=== PATIENT | male | born 1940 | race Caucasian/White ===

== ENCOUNTER 2023-09-29 12:43 | Observation (INO) | payer MEDICARE, SELFPAY ==
[2023-09-29] VITALS (24 sets, daily range): BP systolic 139–167; BP diastolic 62–109; PULSE 57–68; RESP 13–21; TEMP 36.7–37.2; O2SAT 82–100; BMI 18.8
--- NOTE | ~2023-09-29 | XR_ITS ---
EXAMINATION: XR chest 1V DATE: 09/29/2023 14:01 INDICATION: Cerebral vascular accident. TECHNIQUE: A single frontal view of the chest was obtained. COMPARISON: None. FINDINGS: There are lucencies and interstitial opacities in the lungs, consistent with emphysema. The re is mild atelectasis versus scarring in the lower lung zones. There is mild scarring in the upper l obes. No pleural effusion or pneumothorax. The heart size is normal. 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 IMPRESSION: 1. Emphysema. 2. Mild atelectasis versus scarring in the lower lung zones. Mild scarring at the lung apices. Reviewed, dictated and finalized at location E. IMPRESSION: 1. Emphysema. 2. Mild atelectasis versus scarring in the lower lung zones. Mild scarring at t he lung apices.
--- NOTE | ~2023-09-29 | MR_ITS ---
EXAMINATION: MR brain/brain stem wo con DATE: 09/30/2023 14:41 INDICATION: Cerebrovascular accident. TECHNIQUE: Magnetic resonance imaging (MRI) of the brain and brainstem was performed without intraven ous contrast. COMPARISON: Head CT 09/29/2023 FINDINGS: There are patchy acute infarcts involving the right temporal lobe, posterior right frontal lobe, right parietal lobe, and right parietal occipital region in the expected distribution of right middle cerebral artery. There is no intracranial hemorrhage or abnormal mass lesion. There are scatte red areas of nonspecific increased T2-weighted signal intensity in the cerebral white matter. The julia tricles are normal in size. There is mucosal thickening in the paranasal sinuses. There are likely ch anges of ocular lens replacement surgeries. The mastoid air cells are normal. IMPRESSION: 1. Acute infarcts in the expected distribution of right middle cerebral artery. 2. Moderate nonspecific cerebral white matter disease, which likely represents chronic small vessel i schemic disease. Reviewed, dictated and finalized at location E. IMPRESSION: 1. Acute infarcts in the expected distribution of right middle cerebral artery. 2. Moderate nonspecific cerebral white matter disease, which likely represents chronic small vessel ischemic disease.
--- NOTE | ~2023-09-29 | CT_ITS ---
EXAMINATION: CTA brain carotid DATE: 09/29/2023 13:59 INDICATION: Cerebral vascular accident. TECHNIQUE: Computed tomographic angiography (CTA) of the head was performed without and with 100 mL O mnipaque-350 intravenous contrast. CTA of the neck was performed with intravenous contrast. Automated exposure control and iterative reconstruction technique were employed. The dose-length product was 1 505.80 mGy-cm. Maximum intensity projection and volume rendered 3D-reconstructions were created by renetta hernandez technologist on a separate workstation. COMPARISON: None. FINDINGS: HEAD CTA: There are scattered areas of low attenuation in the cerebral white matter. There is an infa rct in right temporal lobe. There is an infarct in right parietal lobe. There is no intracranial hemo rrhage or abnormal mass lesion. The ventricles are normal in size. There is mucosal thickening in the paranasal sinuses. There are likely changes of ocular lens replacement surgeries. The mastoid air ce lls are normal. The vertebral arteries are codominant. There is no significant stenosis of basilar ar trey or the posterior cerebral arteries. The posterior communicating arteries are normal. There is no significant stenosis of the intracranial internal carotid arteries or anterior or middle cerebral ar teries. 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 NECK CTA: There is moderate emphysema. There is mild scarring in the upper lobes. There are no pathol ogically enlarged lymph nodes. There is no significant stenosis of the vertebral arteries. There is p laque in the proximal internal carotid arteries. There is 29% stenosis of the proximal right internal carotid artery relative to normal distal artery lumen diameter (NASCET criteria). There is 0% stenos is of the proximal left internal carotid artery relative to normal distal artery lumen diameter. Ther e is severe cervical spondylosis. There is mild chronic anterior wedging of C5 vertebral body. IMPRESSION: 1. Age-indeterminate infarcts in the right temporal lobe and right parietal lobe. 2. Moderate nonspecific cerebral white matter disease, which likely represents chronic small vessel i schemic disease. 3. 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 4. 29% stenosis of the proximal right internal carotid artery relative to normal distal artery lumen diameter (NASCET criteria). 5. 0% stenosis of the proximal left internal carotid artery relative to normal distal artery lumen di ameter. 6. Moderate emphysema. Reviewed, dictated and finalized at location E. IMPRESSION: 1. Age-indeterminate infarcts in the right temporal lobe and right parietal lob e. 2. Moderate nonspecific cerebral white matter disease, which likely represents chronic small vessel ischemic disease. 3. 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 4. 29% stenosis of the proximal right internal carotid artery relative to juanjo l distal artery lumen diameter (NASCET criteria). 5. 0% stenosis of the proximal left internal carotid artery relative to normal distal artery lumen diameter. 6. Moderate emphysema.
[2023-09-29 13:00] LABS: Glucose Point of Care 93 mg/dl (65-105)
[2023-09-29 13:27] LABS: Basophils Percent Auto 0.2 % (0.2-1.2); Eosinophils Absolute Auto 0.1 K/mm3 (0-0.3); Eosinophils Percent Auto 0.8 % (0-4.4); Hematocrit 42.1 % (42.0-52.0); Hemoglobin 13.6 g/dL (14.0-18.0); Immature Granulocyte Absolute 0.03 K/mm3 (0.00-0.031); Immature Granulocyte Percent A 0.3 % (0-0.5); Lymphocytes Absolute Auto 0.92 K/mm3 (0.9-3.2); Lymphocytes Percent Auto 10.1 % (18.3-44.2); Mean Corpuscular HGB Conc 32.3 g/dl (32-36); Mean Corpuscular Hemoglobin 32.9 pg (26-34); Mean Corpuscular Volume 101.9 fl (80-100); Mean Platelet Volume 9.2 fl (7.4-10.4); Monocytes Absolute Auto 0.6 K/mm3 (0.1-0.6); Monocytes Percent Auto 6.2 % (2.6-8.5); Neutrophils Absolute Auto 7.5 K/mm3 (1.3-6.7); Neutrophils Percent Auto 82.4 % (45.5-73.1); Platelet Count Result 142 k/mm3 (150-375); Red Blood Count 4.13 M/mm3 (4.6-6.20); White Blood Count 9.1 K/mm3 (4.5-10.0)
--- NOTE | 2023-09-29 13:39 | ED.NEUROSD ---
HPI - Neuro Symptoms/Deficit General Chief Complaint: Suspected CVA Stated Complaint: neuro, Time Seen by Provider: 09/29/23 12:57 History of Present Illness HPI Narrative: 82 yo male presents via ems fr concern for stroke. Pt states difficulty finding words prior to arrival. 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 Related Data Allergies Allergy/AdvReac Type Severity Reaction Status Date / Time No Known Allergies Allergy Verified 10/08/23 16:40 Review of Systems Review of Systems: 10 point ros is negative except as noted in HPI. PMFSH Past Medical History Medical History Acute CVA (cerebrovascular accident) HLD (hyperlipidemia) not been treated for 10 years as of 09/2023 HTN (hypertension) not been treated for 10 years as of 09/2023 Family History Family History Father Cerebrovascular accident Acute myocardial infarction Mother Diabetes mellitus Social History Social History Smoking packs per day: 0.5 Smoking cigarettes per day: 10.0 Years smoked: 4 Smoking pack-years: 2.00 Smoking status: Former smoker Tobacco type: cigarettes Alcohol intake: current Drinks per week: 4 Substance use: never Do You Feel Safe in your Home?: Yes Lack of Transportation: No Lack of Food: Never True Current Housing: I Have Housing Concerned About Future Housing: No Difficulty Paying Gas/Electric Bills: No Difficulty Paying for Meds: No Currently Unemployed: No Education: High School Diploma/GED Difficulty w/ Childcare or Family Care: No Spiritual care concerns: No Exam Narrative: gen nad, well appearing heent-perrla, eomi, no trauma lungs ctab cardiac RRR abd soft ntnd skin dry w no rashes neuro moves all ext symmetrical strength Course Vital Signs Vital signs: Vital Signs Temperature 98.0 F 09/29/23 12:56 Pulse Rate 63 09/29/23 12:56 Respiratory Rate 15 09/29/23 12:56 Blood Pressure 151/106 H 09/29/23 12:56 Pulse Oximetry 100 09/29/23 12:56 Oxygen Delivery Room Air 09/29/23 12:56 Temperature 97.3 F L 10/01/23 13:43 Pulse Rate 65 10/01/23 13:43 Respiratory Rate 18 10/01/23 13:43 Blood Pressure 118/56 L 10/01/23 13:43 Pulse Oximetry 100 10/01/23 13:43 Oxygen Delivery Room Air 10/01/23 11:47 MDM - Neuro Symptoms/Deficit MDM Narrative Medical decision making narrative: IMPRESSION: 1. Age-indeterminate infarcts in the right temporal lobe and right parietal lobe. 2. Moderate nonspecific cerebral white matter disease, which likely represents chronic small vessel ischemic disease. 3. 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 4. 29% stenosis of the proximal right internal carotid artery relative to normal distal artery lumen diameter (NASCET criteria). 5. 0% stenosis of the proximal left internal carotid artery relative to normal distal artery lumen diameter. 6. Moderate emphysema. IMPRESSION: 1. Emphysema. 2. Mild atelectasis versus scarring in the lower lung zones. Mild scarring at the lung apices. d/w shawn marcial accepted admission Lab Data 09/30/23 04:48 09/30/23 04:48 Labs: Lab Results 09/29/23 09/29/23 09/29/23 Range/Units 12:57 13:22 15:20 WBC 9.1 (4.5-10.0) K/mm3 RBC 4.13 L (4.6-6.20) M/mm3 Hgb 13.6 L (14.0-18.0) g/dL Hct 42.1 (42.0-52.0) % MCV 101.9 H (80-100) fl MCH 32.9 (26-34) pg MCHC 32.3 (32-36) g/dl RDW 13.0 (11.5-14.5) % Plt Count 142 L (150-375) k/mm3 MPV 9.2 (7.4-10.4) fl Immature Gran % (Auto) 0.3 (0-0.5) % Neut % (Auto) 82.4 H (45.5-73.1) % Lymph % (Auto) 10.1 L (18.3-44.2) % Johnston % (Auto) 6.2 (2.6-8.5) % Eos % (Auto) 0.8 (0-4.4) % Baso % (Auto) 0.2 (0.2-1.2) % Lymph # (Auto) 0.92 (0.9-3.2) K/mm
[2023-09-29 13:41] LABS: INR 0.9; Partial Thromboplastin Time 24.7 Seconds (22.3-36.8); Prothrombin Time 12.9 Seconds (11.1-14.7)
[2023-09-29 13:50] LABS: Alanine Aminotransferase 16 U/L (6-50); Alkaline Phosphatase 65 U/L (38-126); Anion Gap 7 mmol/L (4-12); Aspartate Amino Transferase 28 U/L (17-59); Blood Urea Nitrogen 19 mg/dL (9-20); Calcium 9.3 mg/dL (8.4-10.2); Carbon Dioxide 24 mmol/L (22-30); Chloride 107 mmol/L (98-107); Estimated CRCL calculation 34 ml/min; Estimated Glomerular Filt Rate > 60; Glucose 88 mg/dL (65-110); Sodium 138 mmol/L (137-145)
[2023-09-29 13:55] LABS: Troponin I < 0.012 ng/mL (0.000-0.034)
[2023-09-29 15:57] LABS: Appearance Urine Clear (Clear); Bilirubin Urine Negative (Negative); Blood Urine Negative (Negative); Color Urine Yellow (Yellow); Glucose Urine UA Negative (Negative); Ketones Urine Trace mg/dL (Negative); Leukocyte Esterase Ur Negative LEU/UL (Negative); Nitrate Urine Negative (Negative); Protein Urine Negative (Negative); Urobilinogen Urine 0.2 mg/dL (<2.0); pH Urine 5.5 (5.0-9.0)
[2023-09-29 16:08] LABS: Specific Grav Ur 1.044 (1.001-1.035)
[2023-09-29 16:09] LABS: Add Urine Microscopic? NO
[2023-09-29] MEDS: ASPIRIN 81 MG CHEWABLE TABLET 324 MG PO (16:51)
--- NOTE | 2023-09-29 17:22 | PM.IMHP ---
H&P: HPI History of Present Illness Date/Time: 09/29/23 17:22 Chief Complaint: Slurred Speech Narrative: 82 y/o M presented here with right facial droop and dysarthria with PMH of former light smoker (30 years, 0.5 per month). Patient presents here from home via EMS for further evaluation of right facial droop and slurred speech. Patient reports that he was trimming his bushes when he went to take a break. Neighbor came over while he was taking a break and when he went to talk with her his words would not come out, described it as mush . Denied word aphasia or word finding difficulty. Neighbor noted a right sided facial droop. Denies any focal weakness or numbness. Symptoms lasted for approximately 1 hour and resolved without intervention. Prior to arrival to the emergency department, patient's symptoms resolved. Patient has no history of stroke, not currently on a blood thinner, and did have recent fall. States he fell twice on Sunday (09/23). First was while patient was walking outside and does not remember if he tripped but ended up on the ground and fell to the right onto his right side. Second fall occurred when he had slip on shoes on and he stepped up a step to go into the house and his shoe slid causing him to lose his balance and he fell onto his left side. No lingering pain, loss of consciousness, or injury reported by patient after his falls. Complaint upon arrival was lightheadedness and described it almost as if his balance was off. Denies any current changes in his vision, focal weakness, focal numbness, dysarthria, slurred speech, or trouble swallowing. Not currently on any medication, did take medications for HTN and HLD at one point but has been off these medications for the last 10 years. Initial VS at presentation: 98.0? F, HR 63, RR 15, 151/106, and 100% on RA. ED workup showed: WBC 9.1, platelet count 142, no significant electrolyte derangements, creatinine 1.1 and GFR >60, INR 0.9, troponin negative, UA not suspicious for UTI. CTA of the head neck showed age-indeterminate infarcts in the right temporal lobe and right parietal lobe, moderate nonspecific cerebral white matter disease, saccular aneurysm of anterior communicating artery, 29% stenosis of proximal right ICA, 0% stenosis of the proximal left ICA, and moderate emphysema. CXR showed emphysema and mild atelectasis versus scarring of the lower lung zones. Review of Systems Review of Systems: All systems reviewed & are unremarkable except as noted in HPI and below [facility] Past Medical History Medical History (Updated 09/29/23 @ 20:34 by Tami Callaway APRN) HLD (hyperlipidemia) not been treated for 10 years as of 09/2023 HTN (hypertension) not been treated for 10 years as of 09/2023 Family History Family History Father Cerebrovascular accident Acute myocardial infarction Mother Diabetes mellitus Social History Social History Smoking packs per day: 0.5 Smoking cigarettes per day: 10.0 Years smoked: 4 Smoking pack-years: 2.00 Smoking status: Former smoker Tobacco type: cigarettes Alcohol intake: current Drinks per week: 4 Substance use: never Do You Feel Safe in your Home?: Yes Lack of Transportation: No Lack of Food: Never True Current Housing: I Have Housing Concerned About Future Housing: No Difficulty Paying Gas/Electric Bills: No Difficulty Paying for Meds: No Currently Unemployed: No Education: High School Diploma/GED Difficulty w/ Childcare or Family Care: No Spiritual care concerns: No Meds Home Medications and Allergies Home Medications Medication Instructions Recorded Confirmed Type No Home Medications 09/29/23 09/29/23 History Allergies Allergy/AdvReac Type Severity Reaction Status Date / Time No Known Allergies Allergy Verified 09/29/23 16:42 Vital Signs V
--- NOTE | 2023-09-29 18:21 | ADMGEN ---
This patient, Kem Pollock, was admitted to Medical Room 260-. Patient/family oriented to hospital policies and general routines including ID bracelet, bed and alarms, visiting hours, pain management, procedures, bathroom and other care routines, personal items, smoking policy, room service/diet, and visiting hours. Information on how to activate the Rapid Response Team has been discussed. Patient/Family are encouraged to report perceived risks to care and to ask questions if they do not understand what they are told or what they should do.
[2023-09-30 04:16] VITALS: BP 124/88; PULSE 56; RESP 20; TEMP 36.4; O2SAT 98
[2023-09-30 05:14] LABS: Basophils Percent Auto 0.6 % (0.2-1.2); Eosinophils Absolute Auto 0.2 K/mm3 (0-0.3); Eosinophils Percent Auto 2.9 % (0-4.4); Hematocrit 42.4 % (42.0-52.0); Hemoglobin 13.5 g/dL (14.0-18.0); Immature Granulocyte Absolute 0.02 K/mm3 (0.00-0.031); Immature Granulocyte Percent A 0.3 % (0-0.5); Lymphocytes Absolute Auto 1.25 K/mm3 (0.9-3.2); Lymphocytes Percent Auto 19.3 % (18.3-44.2); Mean Corpuscular HGB Conc 31.8 g/dl (32-36); Mean Corpuscular Hemoglobin 32.8 pg (26-34); Mean Corpuscular Volume 103.2 fl (80-100); Mean Platelet Volume 9.2 fl (7.4-10.4); Monocytes Absolute Auto 0.5 K/mm3 (0.1-0.6); Neutrophils Absolute Auto 4.4 K/mm3 (1.3-6.7); Neutrophils Percent Auto 68.9 % (45.5-73.1); Platelet Count Result 148 k/mm3 (150-375); Red Blood Count 4.11 M/mm3 (4.6-6.20); Red Cell Distribution Width 12.6 % (11.5-14.5); White Blood Count 6.5 K/mm3 (4.5-10.0)
[2023-09-30 05:21] LABS: Hemoglobin A1C 5.1 % (<5.7)
[2023-09-30 05:27] LABS: Alanine Aminotransferase 15 U/L (6-50); Albumin Level 3.7 g/dL (3.5-5.1); Alkaline Phosphatase 59 U/L (38-126); Anion Gap 5 mmol/L (4-12); Aspartate Amino Transferase 29 U/L (17-59); Bilirubin,Total 0.9 mg/dL (0.2-1.3); Blood Urea Nitrogen 15 mg/dL (9-20); Calcium 8.8 mg/dL (8.4-10.2); Carbon Dioxide 26 mmol/L (22-30); Chloride 105 mmol/L (98-107); Cholesterol 184 mg/dL (0-200); Estimated CRCL calculation 42 ml/min; Estimated Glomerular Filt Rate > 60; Glucose 84 mg/dL (65-110); HDL Direct 66 mg/dL; Potassium 3.8 mmol/L (3.4-5.0); Sodium 136 mmol/L (137-145); Triglycerides 69 mg/dL (<150)
[2023-09-30 05:39] LABS: LDL Cholesterol Direct 99 mg/dL
[2023-09-30] MEDS: ASPIRIN 81 MG ENTERIC TABLET PO (08:40)
[2023-09-30] MEDS: ATORVASTATIN 40 MG TABLET PO (08:40)
[2023-09-30] MEDS: CLOPIDOGREL BISULFATE 75 MG TABLET PO (08:40)
--- NOTE | 2023-09-30 11:08 | WPDNEURCNPN ---
Assessment and Plan Assessment and plan (1) Acute CVA (cerebrovascular accident): Code(s): I63.9 - Cerebral infarction, unspecified Status: Acute (2) HLD (hyperlipidemia): Code(s): E78.5 - Hyperlipidemia, unspecified Status: Acute (3) HTN (hypertension): Code(s): I10 - Essential (primary) hypertension Status: Acute Plan Kem Pollock is a 82 year old male with a history of HTN, HLD, fromer smoker presenting for evaluation of R facial droop and speech deficit, that self-resolved after an hour. CT head shows age indeterminate infarct in the R temporal and R parietal regions, but this would not explain the facial droop. Will need to obtain more detailed neuroimaging with MRI to rule out L hemispheric involvement. CTA findings don't appear to be significant enough to be considered as cause of TIA/stroke. Based on distribution of stroke on MRI, will consider additional testing with event monitor vs ERNESTINA if surface echo with bubble study is unrevealing. - MRI brain - Continue Aspirin and Plavix for now. Length of Plavix treatment will depend on distribution and etiology of the stroke - Agree with Lipitor 40mg daily - Surfae echocardiogram with bubble study pending Consult date: 09/30/23 Reason for consult: Stroke HPI: Kem Pollock is a 82 year old male with a history of HTN, HLD, fromer smoker presenting for evaluation of R facial droop and speech deficit. Patient was working in his yard yesterday when neighbor came by to talk. Patient tried to talk but couldn't. His neighbor noted a R sided facial droop. His symptoms lasted for about an hour and self resolved. By the time he presented to [place] ED he did not have any deficits. He does not take any medications. In the ED his initial BP was 151/106. CT head showed age indeterminant infarcts in the R temporal lobe and R parietal lobe. CTA brain/carotid showed 29% stenosis of the proximal R ICA but no significant stenosis or occlusion. He has been started on DAPT and Lipitor 40mg daily. His LDL from this admission is 99. His HgbA1c is 5.1. Review of Systems Review of Systems: All systems reviewed & are unremarkable except as noted in HPI and below PMFSH Past Medical History Medical History HLD (hyperlipidemia) not been treated for 10 years as of 09/2023 HTN (hypertension) not been treated for 10 years as of 09/2023 Family History Family History Father Cerebrovascular accident Acute myocardial infarction Mother Diabetes mellitus Social History Social History Smoking packs per day: 0.5 Smoking cigarettes per day: 10.0 Years smoked: 4 Smoking pack-years: 2.00 Smoking status: Former smoker Tobacco type: cigarettes Alcohol intake: current Drinks per week: 4 Substance use: never Do You Feel Safe in your Home?: Yes Lack of Transportation: No Lack of Food: Never True Current Housing: I Have Housing Concerned About Future Housing: No Difficulty Paying Gas/Electric Bills: No Difficulty Paying for Meds: No Currently Unemployed: No Education: High School Diploma/GED Difficulty w/ Childcare or Family Care: No Spiritual care concerns: No Meds Home Medications and Allergies Home Medications Medication Instructions Recorded Confirmed Type No Home Medications 09/29/23 09/29/23 History Allergies Allergy/AdvReac Type Severity Reaction Status Date / Time No Known Allergies Allergy Verified 09/29/23 16:42 Vital Signs Vital Signs - 24 hr 09/29/23 12:56 09/29/23 13:02 09/29/23 13:02 Temperature 36.7 C Pulse Rate 63 63 Respiratory Rate 15 Blood Pressure 151/106 H Pulse Oximetry 100 100 Oxygen Delivery Room Air Room Air 09/29/23 13:03 09/29/23 13:04 09/29/23 13:05 Temperature Pulse Rate 63 65 64 Respiratory Ra
--- NOTE | 2023-09-30 11:55 | PM.IMPN ---
Progress Note: A&P Assessment and Plan (1) Acute CVA (cerebrovascular accident): Code(s): I63.9 - Cerebral infarction, unspecified Status: Acute Assessment and Plan: - echo w/Bubble pending - neuro checks Q4 - bedside swallow screen: passed, heart healthy - monitor daily labs, lipid panel, A1C - up ad ruben or fall precautions -continue Atorvastatin 40 mg PO -continue Plavix 75 mg PO -continue ASA 81 mg - consider a 30 day event monitoring at discharge Plan Patient was able to complete brain MRI, which revealed 1. acute infarcts in the expected distribution of the right middle cerebral artery 2. Moderate nonspecific cerebral white matter disease, which likely represents chronic small vessel ischemic disease. Home Meds/Chronic Conditions - none Diet: GI Prophylaxis: Not currently indicated DVT Prophylaxis: Lines: Peripheral Code Status: Full code Time Spent With Patient Time with patient: 25 - 35 minutes Subjective Date/time seen: 09/30/23 11:55 Interval history: Patient seen this morning he is resting in the bed with his eyes open he denies any overnight events. Long discussion with patient needing MRI he is respectfully declining at this time patient reports he is anxious and unable to participate in exam at this time. Review of Systems Review of Systems: All systems reviewed & are unremarkable except as noted in HPI and below Objective Data Vital Signs Vital Signs: Vital Signs - 24 hr 09/29/23 12:56 09/29/23 13:02 09/29/23 13:02 Temperature 98.0 F Pulse Rate 63 63 Respiratory Rate 15 Blood Pressure 151/106 H Pulse Oximetry 100 100 Oxygen Delivery Room Air Room Air 09/29/23 13:03 09/29/23 13:04 09/29/23 13:05 Temperature Pulse Rate 63 65 64 Respiratory Rate 16 16 18 Blood Pressure 151/106 H 167/82 H Pulse Oximetry 100 100 98 Oxygen Delivery 09/29/23 13:15 09/29/23 13:16 09/29/23 13:21 Temperature Pulse Rate 61 57 L 59 L Respiratory Rate 16 14 15 Blood Pressure 161/79 H 164/100 H Pulse Oximetry 100 97 Oxygen Delivery 09/29/23 13:22 09/29/23 13:23 09/29/23 13:24 Temperature Pulse Rate 59 L 62 59 L Respiratory Rate 19 19 15 Blood Pressure 145/78 H 149/68 H 146/72 H Pulse Oximetry 99 97 100 Oxygen Delivery 09/29/23 13:25 09/29/23 13:26 09/29/23 13:30 Temperature Pulse Rate 60 61 66 Respiratory Rate 20 15 21 H Blood Pressure 144/109 H 145/64 H Pulse Oximetry 97 100 Oxygen Delivery 09/29/23 14:04 09/29/23 14:15 09/29/23 15:20 Temperature Pulse Rate 68 61 Respiratory Rate 14 13 Blood Pressure Pulse Oximetry 100 96 Oxygen Delivery 09/29/23 15:30 09/29/23 16:03 09/29/23 16:15 Temperature Pulse Rate Respiratory Rate Blood Pressure Pulse Oximetry 100 98 100 Oxygen Delivery 09/29/23 16:31 09/29/23 18:16 09/29/23 19:27 Temperature 98.5 F 99 F Pulse Rate 63 61 Respiratory Rate 18 16 Blood Pressure 156/64 H 139/62 Pulse Oximetry 82 L 100 99 Oxygen Delivery 09/29/23 18:45 09/29/23 20:00 09/30/23 04:16 Temperature 97.6 F Pulse Rate 56 L Respiratory Rate 20 Blood Pressure 124/88 Pulse Oximetry 98 98 Oxygen Delivery Room Air Room Air 09/30/23 08:40 Temperature Pulse Rate Respiratory Rate Blood Pressure Pulse Oximetry Oxygen Delivery Room Air Intake/Output Intake/Output: Intake & Output 09/27/23 09/28/23 09/29/23 09/30/23 23:59 23:59 23:59 23:59 Intake Total 110 Output Total 300 Balance -190 Meds/Results Medications: Active Medications Generic Name Dose Route Start Last Admin Trade Name Bakariq PRN Reason Stop Dose Admin Aspirin 81 mg 09/30/23 09:00 09/30/23 08:40 Aspirin 81 Mg Enteric Tablet PO 81 mg QAM PAT Administration Atorvastatin Calcium 40 mg 09/30/23 09:00 09/30/23 08:40 Atorvastatin 40 Mg Tablet PO 40 mg DAILY PAT Administration Clopidogrel Bisulfate 75 mg
[2023-09-30] MEDS: diazePAM (*CRX) 2 MG TABLET PO (13:04)
[2023-09-30 13:10] VITALS: BP 138/68; PULSE 62; RESP 16; TEMP 36.7; O2SAT 98
--- NOTE | 2023-09-30 13:55 | PC.NURSE ---
pt taken off the unit to MRI
--- NOTE | 2023-09-30 14:43 | PC.NURSE ---
pt returned to room from MRI
[2023-09-30 20:00] VITALS: PULSE 57; RESP 17; O2SAT 95
[2023-09-30 20:30] VITALS: BP 141/61; PULSE 57; RESP 17; TEMP 36.8; O2SAT 95
--- NOTE | 2023-10-01 | ECHO_ITS ---
Patient Info Name: Kem Pollock Age: 82 years : 1940 Gender: Male Ht: 70 in Wt: 131 lbs BSA: 1.70 m2 HR: 52 bpm BP: 112 / 60 mmHg Technical Quality: Fair Exam Date: 10/01/2023 10:28 AM Exam Location: Echo Lab Exam Room: [facility] Patient Status: Outpatient Admit Date: 09/29/2023 Staff Ordering Physician: Tami Callaway APRN Whirley Operator: Sara Bhandair RDCS Attending Provider: Chantel Julien MD Referring Physician: Nilton ZHOU; Exam Type: CA echo dop bubble study w con Study Info Indications - cva workup Complete two-dimentional, color flow and Doppler transthoracic echocardiogram is performed with agitated saline and with contrast to opacify the left ventricle and to improve the delineation of the left ventricle endocardial borders. Contrast/Agitated Saline Contrast/Ag. Saline: Definity Amount: 2.00 ml Administered By: Sara Bhandari [facility] Existing IV Access: Yes IV Access Condition: patent with no signs of infiltration Summary 1. Definity contrast administered improved wall motion interpretation. 2. Left ventricular chamber dimension is normal. 3. Left ventricular systolic function is normal, estimated at 65-70%. 4. The left ventricular diastolic function is grade I diastolic dysfunction. 5. E/e' 9 is minimally elevated. 6. Left atrial chamber dimension is mildly enlarged. 7. Right atrial chamber dimension is mildly enlarged. 8. There is moderate aortic valve sclerosis. 9. There is mild tricuspid valve regurgitation. 10. No pulmonary hypertension, estimated pulmonary arterial systolic pressure is 35 mmHg. Left Ventricle E/e' 9 is minimally elevated. Definity contrast administered improved wall motion interpretation. Left ventricular chamber dimension is normal. Left ventricular systolic function is normal, estimated at 65-70%. The left ventricular diastolic function is grade I diastolic dysfunction. Right Ventricle Right ventricular chamber dimension is normal. Right ventricular systolic function is normal. Left Atria Left atrial chamber dimension is mildly enlarged. Right Atria Right atrial chamber dimension is mildly enlarged. Atrial Septum Agitated saline injection with and without valsalva maneuver opacified right side cardiac chambers without shunt to left side cardiac chambers. Intact interatrial septum visualized by 2D and agitated saline imaging. Aortic Valve The aortic valve is trileaflet. There is moderate aortic valve sclerosis. There is no aortic valve stenosis. There is no aortic valve regurgitation. Pulmonic Valve There is no pulmonic regurgitation. Mitral Valve There is no mitral valve stenosis. There is no mitral valve regurgitation. Tricuspid Valve There is mild tricuspid valve regurgitation. No pulmonary hypertension, estimated pulmonary arterial systolic pressure is 35 mmHg. Pericardium/Pleural There is no pericardial effusion. Inferior Vena Cava Normal inferior vena cava with >50% collapse upon inspiration consistent with normal right atrial pressure, 5 mmHg. Aorta The aortic root size at the sinus of Valsalva is normal. Left Ventricular Outflow Tract Name Value Normal LVOT 2D LVOT Diameter 2.0 cm LVOT Doppler
[2023-10-01 05:07] VITALS: BP 112/60; PULSE 56; RESP 17; TEMP 36.8; O2SAT 98
[2023-10-01] MEDS: ASPIRIN 81 MG ENTERIC TABLET PO (09:31)
[2023-10-01] MEDS: ATORVASTATIN 40 MG TABLET PO (09:31)
[2023-10-01] MEDS: CLOPIDOGREL BISULFATE 75 MG TABLET PO (09:31)
--- NOTE | 2023-10-01 10:40 | PCPTNOTE ---
attempted Pt eval, patient getting tested at this time will follow
[2023-10-01 11:17] VITALS: BMI 18.8
[2023-10-01] MEDS: PERFLUTREN LIPID MICROSPHERES 1.5 ML VIAL DILUTED TO 10 ML TOTAL VOLUME IV PUSH (11:30)
--- NOTE | 2023-10-01 12:14 | IVDEFINITY ---
Prior to administration of IV Definity the patient was educated on the risks and benefits of the imaging enhancing agent including potential adverse side effects. The patient verbalized understanding. Allergies were verified. No exclusion criteria were identified and at least one of the following inclusion criteria were met: 1) physician request, 2) patient technically difficult to image (per the [place] [employer] guidelines of two or more segments not discernable within the apical view), or 3) questionable left ventricular function. ?
--- NOTE | 2023-10-01 13:07 | ECG_ITS ---
SEE SCANNED COPY FOR CONFIRMED REPORT MTDD
[2023-10-01 13:43] VITALS: BP 118/56; PULSE 65; RESP 18; TEMP 36.3; O2SAT 100
--- NOTE | 2023-10-01 13:51 | PM.DS ---
DS: Admitting Diagnosis Discharge Date 10/01/23 Admitting Diagnosis slurred speech DS: Discharge Diagnosis Discharge Diagnosis (1) Acute CVA (cerebrovascular accident): Code(s): I63.9 - Cerebral infarction, unspecified Status: Acute Assessment and Plan: symptoms resolved brain MRI, which revealed acute infarcts in the expected distribution of the right middle cerebral artery. Moderate nonspecific cerebral white matter disease, which likely represents chronic small vessel ischemic disease. follow up with neurology in 6-8 weeks - echo w/Bubble unrevealing - bedside swallow screen: passed, heart healthy -continue Atorvastatin 40 mg PO -continue Plavix 75 mg PO -continue ASA 81 mg -30 day event monitoring at discharge ordered after establishing with cardiology DS: Summary Hospital Course Hospital Course: Patient is a 82 y/o M admitted with right facial droop and dysarthria with PMH of former light smoker (30 years, 0.5 per month). Denies any focal weakness or numbness. Symptoms lasted for approximately 1 hour and resolved without intervention. Prior to arrival to the emergency department, patient's symptoms resolved. Patient has no history of stroke, not currently on a blood thinner, and did have recent fall. Denies any current changes in his vision, focal weakness, focal numbness, dysarthria, slurred speech, or trouble swallowing. Not currently on any medication, did take medications for HTN and HLD at one point but has been off these medications for the last 10 years. ED workup showed: WBC 9.1, platelet count 142, no significant electrolyte derangements, creatinine 1.1 and GFR >60, INR 0.9, troponin negative, UA not suspicious for UTI. CTA of the head neck showed age-indeterminate infarcts in the right temporal lobe and right parietal lobe, moderate nonspecific cerebral white matter disease, saccular aneurysm of anterior communicating artery, 29% stenosis of proximal right ICA, 0% stenosis of the proximal left ICA, and moderate emphysema. CXR showed emphysema and mild atelectasis versus scarring of the lower lung zones. Neurology was consulted, MRI of brain was obtained. ECHO was unrevealing and patient is stable for d/c today with ASA, Plavix x3 weeks and Lipitor daily. Status at Discharge Functional status at discharge: uses cane/walker Overall status at discharge: patient is back to baseline Time Spent with Patient Time attestation: Total time spent providing and/or coordinating discharge services: Exam Const: General: comfortable and no acute distress HENMT: Mouth: Yes moist mucous membranes Eyes: Pupils: Equal, round and reactive pupils present EOM: EOMs intact bilaterally Neck: Neck: supple Resp: Effort & Inspection: normal respiratory effort Auscultation: clear to auscultation bilaterally Cardio: Rate: regular rate Rhythm: regular rhythm GI: GI Palp: Yes Soft to palpation Auscultation: normal bowel sounds Skin: General skin exam: normal color Neuro: General: gait normal and deep tendon reflexes 2+ bilaterally Motor exam (neuro): 5/5 motor strength present throughout Sensory Exam: normal sensation Extrem: General: normal to inspection Psych: Mental Status: mental status grossly normal Affect: normal affect Discharge Plan Discharge Attending physician on discharge: Mulugeta Ordoñez Consulting providers: Nasim Ludwig Srishti Discharging Clinician: Geno Villa Anticipated Discharge Date/Time: 10/01/23 12:29 Patient Disposition: Home, Self-Care Activity: as tolerated Diet: heart healthy Discharge Instructions: Take your new medications as directed. You will take the aspirin daily, and the Plavix daily for 3 weeks then you can stop and take only the aspirin. Continue to take the Lipitor daily. Follow up with your primary care doctor within 1 week. I have ordered outpatient school lunch monitor for 30 days. Follow up with neurology in 6-8 week
== END 2023-10-01 15:00 | disposition home or self-care (01) ==
LOC: ANHED 16:14 → ANH2MED 19:52
PROVIDERS: Student in an Organized Health Care Education/Training Program; Admitting Provider General Practice; Emergency Provider Emergency Medicine; Visit Provider Internal Medicine
DX: I63.9 Cerebral infarction, unspecified (principal); I10 Essential (primary) hypertension; E78.5 Hyperlipidemia, unspecified; J43.9 Emphysema, unspecified; Z87.891 Personal history of nicotine dependence; R29.700 NIHSS score 0
CPT/HCPCS: 36415; 70496; 70498; 70551; 71045; 80053; 80061; 81003; 82948; 83036; 84484; 85025; 85610; 85730; 93005; 96374; 96375; 97116; 97161; 97165; 99285; A9270; C8929; G0378; Q9957; Q9967

== ENCOUNTER 2023-10-08 16:39 | Emergency (ER) | payer OTHER, MEDICARE, SELFPAY ==
--- NOTE | ~2023-10-08 | XR_ITS ---
EXAMINATION: XR chest 1V portable Exam Date/Time: 10/08/2023 17:45 CDT HISTORY: cough Comparison: 09/29/2023. RESULT: Lines, tubes, and devices: None. Lungs and pleura: Emphysematous changes with scattered areas of scarring. No focal consolidation, pl eural effusion, or pneumothorax. Cardiomediastinal silhouette: Stable. Other: No acute osseous or upper abdominal finding. 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 IMPRESSION: No acute cardiopulmonary process. Reviewed, dictated and finalized at location K.
[2023-10-08 16:53] VITALS: BP 89/40; PULSE 80; RESP 14; TEMP 37.4; O2SAT 94
--- NOTE | 2023-10-08 17:31 | PC.NURSE ---
Called ED care coordination for help with consulting for hospice per pt and pts family request.
[2023-10-08] MEDS: SODIUM CHLORIDE 0.9% IV 1,000 ML 999 ML IV CONT (17:59)
[2023-10-08 18:01] VITALS: BP 129/71; O2SAT 100
[2023-10-08 18:10] LABS: Basophils Absolute Auto 0.1 K/mm3 (0.0-0.1); Basophils Percent Auto 0.3 % (0.2-1.2); Hematocrit 44.4 % (42.0-52.0); Hemoglobin 14.6 g/dL (14.0-18.0); Immature Granulocyte Absolute 0.35 K/mm3 (0.00-0.031); Immature Granulocyte Percent A 2.1 % (0-0.5); Immature Platelet Fraction Pct 3.9 % (0.9-11.2); Lymphocytes Absolute Auto 0.34 K/mm3 (0.9-3.2); Mean Corpuscular HGB Conc 32.9 g/dl (32-36); Mean Corpuscular Hemoglobin 32.8 pg (26-34); Mean Corpuscular Volume 99.8 fl (80-100); Mean Platelet Volume 9.7 fl (7.4-10.4); Monocytes Absolute Auto 0.5 K/mm3 (0.1-0.6); Monocytes Percent Auto 2.7 % (2.6-8.5); Neutrophils Absolute Auto 15.5 K/mm3 (1.3-6.7); Neutrophils Percent Auto 92.9 % (45.5-73.1); Platelet Count Result 133 k/mm3 (150-375); Red Blood Count 4.45 M/mm3 (4.6-6.20); White Blood Count 16.7 K/mm3 (4.5-10.0)
[2023-10-08 18:15] LABS: Alanine Aminotransferase 24 U/L (6-50); Albumin Level 3.9 g/dL (3.5-5.1); Alkaline Phosphatase 86 U/L (38-126); Anion Gap 6 mmol/L (4-12); Aspartate Amino Transferase 37 U/L (17-59); Bilirubin,Total 1.4 mg/dL (0.2-1.3); Blood Urea Nitrogen 26 mg/dL (9-20); Calcium 8.6 mg/dL (8.4-10.2); Carbon Dioxide 28 mmol/L (22-30); Chloride 101 mmol/L (98-107); Estimated CRCL calculation 30 ml/min; Estimated Glomerular Filt Rate 48; Glucose 146 mg/dL (65-110); Potassium 3.5 mmol/L (3.4-5.0); Sodium 135 mmol/L (137-145)
[2023-10-08 18:16] VITALS: BP 129/63; O2SAT 97
--- NOTE | 2023-10-08 18:56 | PCCCNOTE ---
CC called to the ED to discuss Hospice options and get him signed up. He was given choices, [facility] was contacted. Spoke with Courtney CESAR form [facility]. They are coming to evaluate pt and get the papers signed. Pt wants to go home tonight on Hospice.
[2023-10-08 19:15] VITALS: PULSE 78
[2023-10-08 19:16] VITALS: BP 125/71; PULSE 78; RESP 18; O2SAT 98
--- NOTE | 2023-10-08 19:43 | PC.NURSE ---
191: This RN spoke with social services aide about pt and his plan for hospice. 1942: exhaust worker states pt is ready to get out of here and is all cleared to go home. This RN started working on getting [facility] form and transport ready for home.
--- NOTE | 2023-10-08 20:00 | ED.GENADULT ---
HPI - General Adult General Chief complaint: Weakness Stated complaint: failure to thrive, stroke 1 week ago Time Seen by Provider: 10/08/23 17:21 History of Present Illness HPI narrative: Patient is an 82-year-old male who presents ER looking to be placed on hospice. Patient recently had a stroke and was discharged on 10/01/2023. Reports since being home he has become much more weak and is requiring use assistance of his family members to perform his daily activities. He does not wish to have any additional treatments and is now requesting help to find ways to keep him comfortable. Family at bedside and supportive of this decision. Related Data Allergies Allergy/AdvReac Type Severity Reaction Status Date / Time No Known Allergies Allergy Verified 10/08/23 16:40 Review of Systems Review of Systems: All systems reviewed & are unremarkable except as noted in HPI and below Constitutional: Constitutional: Denies chills, Reports fatigue, Denies fever(s) and Reports weakness ENT: Reports system reviewed and no additional complaints, except as documented Cardiovascular: Cardiovascular: Reports no additional cardiovascular complaints Respiratory: Respiratory: Reports no additional respiratory complaints Gastrointestinal: Gastrointestinal: Reports no additional gastrointestinal complaints Musculoskeletal: Musculoskeletal: Reports no additional musculoskeletal complaints [facility] Past Medical History Medical History (Updated 10/08/23 @ 20:04 by Kem Herrera MD) Acute CVA (cerebrovascular accident) HLD (hyperlipidemia) not been treated for 10 years as of 09/2023 HTN (hypertension) not been treated for 10 years as of 09/2023 Family History Family History Father Cerebrovascular accident Acute myocardial infarction Mother Diabetes mellitus Social History Social History Smoking packs per day: 0.5 Smoking cigarettes per day: 10.0 Years smoked: 4 Smoking pack-years: 2.00 Smoking status: Former smoker Tobacco type: cigarettes Alcohol intake: current Drinks per week: 4 Substance use: never Do You Feel Safe in your Home?: Yes Lack of Transportation: No Lack of Food: Never True Current Housing: I Have Housing Concerned About Future Housing: No Difficulty Paying Gas/Electric Bills: No Difficulty Paying for Meds: No Currently Unemployed: No Education: High School Diploma/GED Difficulty w/ Childcare or Family Care: No Spiritual care concerns: No Exam Narrative: GENERAL: Chronically ill-appearing, underweight, and in no acute distress. HEAD: Normocephalic, atraumatic. ENT: Dry mucous membranes CHEST: Clear to auscultation. No respiratory distress. HEART: Regular rate and rhythm. Normal peripheral pulses. ABDOMEN: Soft, nontender, nondistended. EXTREMITIES: Normal range of motion. No edema. SKIN: Warm, dry, no rash. NEURO: Alert and oriented x3. PSYCH: Normal mood and affect. Course Course Emergency Course: Care coordination and [facility] have seen the patient. Patient may be discharged in family will take him home. The test will then admit him to hospice at home and provide him with anything he needs. Vital Signs Vital signs: Vital Signs Temperature 99.3 F 10/08/23 16:53 Pulse Rate 80 10/08/23 16:53 Respiratory Rate 14 10/08/23 16:53 Blood Pressure 89/40 L 10/08/23 16:53 Pulse Oximetry 94 10/08/23 16:53 Oxygen Delivery Room Air 10/08/23 16:53 Temperature 99.3 F 10/08/23 16:53 Pulse Rate 78 10/08/23 19:16 Respiratory Rate 18 10/08/23 19:16 Blood Pressure 125/71 10/08/23 19:16 Pulse Oximetry 98 10/08/23 19:16 Oxygen Delivery Room Air 10/08/23 16:53 Medical Decision Making Vital Signs Vital Signs: Vital Signs Temperature 99.3 F 10/08/23 16:53 Pulse Rate 80 10/08/23 16:53 Respiratory Rate 14
--- NOTE | 2023-10-08 20:37 | PC.NURSE ---
2036: space operations officer called and Tarik will be here to warp picker patient around 21:15. This RN called his hospice nurse and gave her an update on ETA.
== END 2023-10-08 21:10 | disposition hospice, home (50) ==
PROVIDERS: Emergency Provider Emergency Medicine
DX: E86.0 Dehydration (principal); R53.1 Weakness; I10 Essential (primary) hypertension; E78.5 Hyperlipidemia, unspecified; Z86.73 Personal history of transient ischemic attack (TIA), and cerebral infarction without residual deficits
CPT/HCPCS: 36415; 71045; 80053; 85025; 85055; 96360; 99284; J7030